=== PATIENT | male | born 1995 ===

== ENCOUNTER 2017-08-22 17:16 | Emergency (ER) | payer SELFPAY ==
[~2017-08-22] VITALS: Ht 170.2 cm; Wt 72.6 kg
[2017-08-22 17:40] VITALS: BP 132/105
[2017-08-22 19:00] VITALS: BP 137/87
[2017-08-22 19:22] VITALS: BP 138/87
[2017-08-22 19:54] LABS: BASOPHILS % (AUTO) 1.1 % (0.0-2.0); EOSINOPHILS % (AUTO) 0.2 % (0.0-3.0); LYMPHOCYTES % (AUTO) 14.1 % (20.0-45.0); MEAN CORPUSCULAR HEMOGLOBIN 31.6 PG (27.0-31.0); MEAN CORPUSCULAR HGB CONC 32.4 G/DL (32.0-36.0); MEAN CORPUSCULAR VOLUME 97 FL (80-99); MEAN PLATELET VOLUME 6.2 FL (6.5-10.1); MONOCYTES % (AUTO) 5.6 % (1.0-10.0); PLATELET COUNT 157 K/UL (150-450); RED BLOOD COUNT 4.33 M/UL (4.70-6.10); RED CELL DISTRIBUTION WIDTH 11.1 % (11.6-14.8); WHITE BLOOD COUNT 9.2 K/UL (4.8-10.8)
[2017-08-22 20:05] LABS: ANION GAP 7 mmol/L (5-15); CALCIUM 9.2 MG/DL (8.5-10.1); CARBON DIOXIDE 31 MMOL/L (21-32); CHLORIDE 103 MMOL/L (98-107); CREATININE 1.2 MG/DL (0.55-1.30); GLOMERULAR FILTRATION RATE > 60 mL/min (>60); POTASSIUM 3.6 MMOL/L (3.5-5.1); SODIUM 141 MMOL/L (136-145)
[2017-08-22 20:10] LABS: ALANINE AMINOTRANSFERASE 94 U/L (12-78); ALBUMIN/GLOBULIN RATIO 1.1 (1.0-2.7); ASPARTATE AMINO TRANSFERASE 161 U/L (15-37); TOTAL PROTEIN 7.4 G/DL (6.4-8.2)
[2017-08-22 20:11] LABS: ACETAMINOPHEN < 10 MCG/ML (10-30); ALCOHOL < 3 mg/dL
[2017-08-22 21:00] VITALS: BP 136/75
--- NOTE | 2017-08-22 21:36 | Emergency Room Report ---
History of Present Illness General Chief Complaint: Substance Abuse Source: EMS Present Illness HPI Patient was brought in by paramedics for complaints of altered mental status Patient was found outside of a fast food restaurant confused Was question of possible drug abuse Upon arrival initiated the patient was awake conversing with the staff However soon after became more unresponsive And only would be responsive to physical stimuli Patient has history of present illness remains limited however the patient did deny any medical history prior to falling asleep Allergies: Coded Allergies: No Known Allergies (Unverified , 08/22/17) Patient History Limited by: medical condition Past Medical History: see triage record Pertinent Family History: unable to obtain Reviewed Nursing Documentation: PMH: Agreed, PSxH: Agreed Nursing Documentation-PMH Past Medical History: No History, Except For History Of Psychiatric Problem: Yes - Substance use Review of Systems All Other Systems: limited - Other than the ones mentioned in the history of present illness all others are reviewed however they do stay limited due to the patient's mental status Physical Exam Vital Signs Date Time Temp Pulse Resp B/P (MAP) Pulse Ox O2 Delivery O2 Flow Rate FiO2 08/22/17 17:15 98.2 109 22 146/86 98 Room Air Sp02 EP Interpretation: reviewed, normal General Appearance: no apparent distress Head: normocephalic, atraumatic Eyes: bilateral eye PERRL, bilateral eye EOMI ENT: normal pharynx Neck: full range of motion, supple Respiratory: chest non-tender, lungs clear Cardiovascular #1: normal peripheral pulses, regular rate, rhythm Gastrointestinal: normal bowel sounds, non tender Musculoskeletal: normal inspection Neurologic: oriented x3 - Initially the patient was oriented responsive soon after being put into a bed the patient appears to be more difficult to arouse however is responsive, , Skin: normal color, no rash Lymphatic: no adenopathy Medical Decision Making Diagnostic Impression: Primary Impression: Substance abuse ER Course Patient has extensive workup initiated Appears to have multiple positive on the urine drug screen resting comfortably initially had appropriate neurological exam and therefore imaging study of the brain was obtained Patient's having further hydration And will have reevaluation upon further sobering Last Vital Signs Date Time Temp Pulse Resp B/P (MAP) Pulse Ox O2 Delivery O2 Flow Rate FiO2 08/22/17 19:22 98.2 97 13 138/87 97 Room Air Status: improved RAFFAELE KLEIN D.O. Aug 22, 2017 21:36
[2017-08-23 01:10] VITALS: BP 131/75
[2017-08-23 02:45] VITALS: BP 136/75
[2017-08-23 04:45] VITALS: BP 128/74
[2017-08-23 05:40] VITALS: BP 128/74
[2017-08-23] MEDS ORDERED: NKM (11:04)
== END 2017-08-23 05:40 | disposition home or self-care (01) ==
LOC: EDBD 17:16 → EMR 18:00
DX: F19.10 Other psychoactive substance abuse, uncomplicated (principal); R41.82 Altered mental status, unspecified
CPT/HCPCS: 36415; 80053; 80307; 85025; 96374; 99284; G0480; 80329

== ENCOUNTER 2017-08-23 10:45 | Emergency (ER) | payer SELFPAY ==
[~2017-08-23] VITALS: Ht 180.3 cm; Wt 81.6 kg
[2017-08-23] MEDS ORDERED: NKM (11:04)
[2017-08-23 14:11] VITALS: BP 138/77
--- NOTE | 2017-08-23 15:08 | Emergency Room Report ---
History of Present Illness General Chief Complaint: General Complaint Source: Patient, EMS Present Illness HPI 21-year-old male no significant past medical history brought by law enforcement. Patient admits to doing a lot of med. States that he is a chronic meth user. Only complaining of mild anxiety. In police custody because he was caught masturbating in public Allergies: Coded Allergies: No Known Allergies (Unverified , 08/22/17) Patient History Past Medical History: see triage record Past Surgical History: none Pertinent Family History: none Reviewed Nursing Documentation: PMH: Agreed, PSxH: Agreed Nursing Documentation-PMH History Of Psychiatric Problem: Yes - Bipolar; substance abuse Review of Systems All Other Systems: negative except mentioned in HPI Physical Exam Vital Signs Date Time Temp Pulse Resp B/P (MAP) Pulse Ox O2 Delivery O2 Flow Rate FiO2 08/23/17 10:41 76 14 140/90 98 Room Air 08/23/17 14:11 97.3 Sp02 EP Interpretation: reviewed, normal General Appearance: normal inspection, well appearing, no apparent distress, alert, GCS 15, non-toxic Head: normocephalic, atraumatic Eyes: bilateral eye normal inspection, bilateral eye PERRL, bilateral eye EOMI ENT: normal ENT inspection, normal pharynx, normal voice, moist mucus membranes Neck: normal inspection, full range of motion, supple Respiratory: normal inspection, lungs clear, normal breath sounds, no respiratory distress, no retraction, no wheezing, speaking full sentences, chest symmetrical Cardiovascular #1: normal inspection, regular rate, rhythm, no edema, normal capillary refill Cardiovascular #2: 2+ radial (R), 2+ radial (L) Gastrointestinal: normal inspection, non tender, soft, non-distended, no guarding Genitourinary: no CVA tenderness Musculoskeletal: normal inspection, back normal, normal range of motion, non- tender Neurologic: normal inspection, alert, oriented x3, responsive, motor strength/ tone normal, sensory intact, normal gait, speech normal Psychiatric: normal inspection, judgement/insight normal, memory normal Skin: normal inspection, normal color, no rash, warm/dry, well hydrated, normal turgor Medical Decision Making Diagnostic Impression: Primary Impression: Methamphetamine abuse ER Course 21-year-old male, brought by law enforcement, meth abuse DDX: Meth use Plan: No intervention in the emergency room ER course: Patient has remained stable during ED stay. Disposition: Patient is to be discharged to law enforcement Patient is instructed to follow up with their primary care doctor within 5 days. Strict return precautions discussed with patient such as fever, chills, worsening/severe pain, nausea, vomiting, which may indicate severe illness. Patient verbalizes understanding and agrees with plan. Please note that this Emergency Department Report was dictated using [employer] received technology software, occasionally this can lead to erroneous entry secondary to interpretation by the dictation equipment Last Vital Signs Date Time Temp Pulse Resp B/P (MAP) Pulse Ox O2 Delivery O2 Flow Rate FiO2 08/23/17 14:11 97.3 91 18 138/77 99 Room Air Disposition: LAW ENFORCEMENT IN CUST Condition: Stable Departure Forms: Residential Clearance Patient Instructions: Stimulant Use Disorder-Rc Stiles M.D. Aug 23, 2017 15:08
== END 2017-08-23 14:20 ==
LOC: EDBD 10:45 → EMR 11:12
DX: F15.10 Other stimulant abuse, uncomplicated (principal); F31.9 Bipolar disorder, unspecified
CPT/HCPCS: 99283